=== PATIENT | male | born 1950 | race African-American/Black ===

== ENCOUNTER 2016-06-26 08:42 | Emergency (ER) | payer MEDICARE, MEDICAID ==
[~2016-06-26] VITALS: Ht 170.2 cm; Wt 104.5 kg
[~2016-06-26 08:42] MED LIST: CYCLOBENZAPR10 MG PO; FLEXERIL PO; GOLYTELY4000 ML PO; HYDROCHLOROT12.5 MG PO; HYDROCODONE/ACE1 TAB PO; LIORESAL10 MG/TAB PO; LIPITOR20 M1 PO; LISINOP/HCTZ1 TAB PO; LORTAB 5/3255 MG PO; MELOXICAM7.5 MG PO; NAPROSYN500 MG PO; NITROGLYCER0.4 MG SL; OMEPRAZOLE20 M2 PO; OXYCODONE HCL5 MG PO
[2016-06-26] MEDS ORDERED: AMOXICILLIN500 MG PO (09:17)
[2016-06-26] MEDS ORDERED: LORTAB 10-325 M1 TAB PO (09:17)
[2016-06-26 09:23] VITALS: BP 114/76
[2016-06-30] MEDS ORDERED: HYDROCODONE/ACE1 TAB PO (09:26)
== END 2016-06-26 09:27 | disposition home or self-care (01) ==
LOC: ED 08:42
DX: K08.89 Other specified disorders of teeth and supporting structures (principal); K04.7 Periapical abscess without sinus

== ENCOUNTER 2016-10-07 17:32 | Emergency (ER) | payer MEDICARE, MEDICAID ==
[~2016-10-07] VITALS: Ht 170.2 cm; Wt 105.0 kg
[~2016-10-07 17:32] MED LIST changes: +AMOXICILLIN500 MG PO; +LATANOPROST0.005 % OP; +LORTAB 10-325 M1 TAB PO
[2016-10-07 19:32] LABS: HEMOGLOBIN 13.1 g/dl (14.0-18.0); IMMATURE GRANULOCYTES 0.1 % (0.0-1.0); MEAN CORPUSCULAR HGB 29.6 pG CALC (26.0-32.0); MEAN CORPUSCULAR HGB CONC 33.6 g/L CALC (32.0-36.0); NEUT# 4.14 thou/uL (1.82-7.42); RED BLOOD COUNT 4.43 mill/uL (4.70-6.10); RED CELL DISTRI WIDTH 12.9 % (11.5-15.5)
[2016-10-07 19:47] LABS: ALBUMIN 4.2 g/dL (3.2-5.0); ALKALINE PHOSPHATASE 92 u/l (38-126); ANION GAP 15 (6-22 (CALC)); BILIRUBIN, TOTAL 0.5 mg/dL (0.0-1.4); BUN 18 mg/dL (8-23); BUN/CREATININE RATIO 18 (12-20 (CALC)); CALCIUM 9.3 mg/dL (8.4-10.2); CARBON DIOXIDE 25 mmol/l (22-30); CHLORIDE 106 mmol/l (95-108); GFR > 60 ML/MIN (>=60 (CALC)); GFR FOR AFR.AMER. > 60 ML/MIN (>=60 (CALC)); GLUCOSE 98 mg/dL (82-115); POTASSIUM 4.1 mmol/l (3.5-5.1); SGOT/AST 24 u/l (19-48); SGPT/ALT 34 u/l (11-66); SODIUM 141 mmol/l (137-146); TOTAL PROTEIN 7.5 g/dL (6.3-8.2)
[2016-10-07] MEDS ORDERED: ULTRAM50 M1 PO (19:50)
[2016-10-07 20:25] VITALS: BP 119/63
== END 2016-10-07 20:23 | disposition home or self-care (01) ==
LOC: ED 17:32
PROVIDERS: Emergency Medicine
DX: M54.31 Sciatica, right side (principal); S16.1XXA Strain of muscle, fascia and tendon at neck level, initial encounter; G40.909 Epilepsy, unspecified, not intractable, without status epilepticus; I10 Essential (primary) hypertension; K21.9 Gastro-esophageal reflux disease without esophagitis; G89.29 Other chronic pain; M54.5 Low back pain; X58.XXXA Exposure to other specified factors, initial encounter

== ENCOUNTER 2016-11-26 10:10 | Inpatient (IN) | payer MEDICARE, MEDICAID ==
[~2016-11-26] VITALS: Ht 170.2 cm; Wt 108.0 kg
[~2016-11-26 10:10] MED LIST changes: +ULTRAM50 M1 PO
[2016-11-27] VITALS (8 sets, daily range): BP systolic 90–118; BP diastolic 59–81
[2016-11-27 07:45] LABS: HEMATOCRIT 40.1 % (39.0-50.0); HEMOGLOBIN 13.1 g/dl (14.0-18.0); IMMATURE GRANULOCYTES 0.3 % (0.0-1.0); MEAN CELL VOLUME 88.3 fL CALC (80.0-100.0); MEAN CORPUSCULAR HGB 28.9 pG CALC (26.0-32.0); MEAN CORPUSCULAR HGB CONC 32.7 g/L CALC (32.0-36.0); NEUT# 4.29 thou/uL (1.82-7.42); RED BLOOD COUNT 4.54 mill/uL (4.70-6.10); RED CELL DISTRI WIDTH 12.9 % (11.5-15.5)
[2016-11-27 08:08] LABS: PROTHROMBIN TIME 10.6 SECONDS (9.0-12.5)
[2016-11-28 00:10] VITALS: BP 100/66
[2016-11-28 04:02] VITALS: BP 113/71
[2016-11-28 06:32] LABS: HEMATOCRIT 34.6 % (39.0-50.0); HEMOGLOBIN 11.6 g/dl (14.0-18.0); MEAN CELL VOLUME 87.8 fL CALC (80.0-100.0); MEAN CORPUSCULAR HGB 29.4 pG CALC (26.0-32.0); MEAN CORPUSCULAR HGB CONC 33.5 g/L CALC (32.0-36.0); RED BLOOD COUNT 3.94 mill/uL (4.70-6.10); RED CELL DISTRI WIDTH 13.2 % (11.5-15.5)
[2016-11-28 06:50] LABS: ANION GAP 13 (6-22 (CALC)); BUN 17 mg/dL (8-23); BUN/CREATININE RATIO 22 (12-20 (CALC)); CALCIUM 8.4 mg/dL (8.4-10.2); CARBON DIOXIDE 23 mmol/l (22-30); CHLORIDE 105 mmol/l (95-108); CREATININE 0.7 mg/dL (0.7-1.3); GFR > 60 ML/MIN (>=60 (CALC)); GFR FOR AFR.AMER. > 60 ML/MIN (>=60 (CALC)); GLUCOSE 114 mg/dL (82-115); POTASSIUM 4.2 mmol/l (3.5-5.1); SODIUM 137 mmol/l (137-146)
[2016-11-28 09:03] VITALS: BP 102/68
[2016-11-28] MEDS ORDERED: PERCOCET 10/31 COMBO PO (10:11)
== END 2016-11-28 11:42 | disposition home or self-care (01) | DRG 483 ==
LOC: MS2 11-27 05:58
PROVIDERS: Internal Medicine; ADMIT Orthopaedic Surgery; ATTEND Orthopaedic Surgery
PROC: 0RRJ00Z Replacement of Right Shoulder Joint with Reverse Ball and Socket Synthetic Substitute, Open Approach (ICD-10-PCS; principal; 2016-11-27)
PROC: 0LS30ZZ Reposition Right Upper Arm Tendon, Open Approach (ICD-10-PCS; 2016-11-27)
DX: M75.121 Complete rotator cuff tear or rupture of right shoulder, not specified as traumatic (principal); M19.011 Primary osteoarthritis, right shoulder; S46.211A Strain of muscle, fascia and tendon of other parts of biceps, right arm, initial encounter; K21.9 Gastro-esophageal reflux disease without esophagitis; E78.5 Hyperlipidemia, unspecified; G89.29 Other chronic pain; M54.5 Low back pain; X58.XXXA Exposure to other specified factors, initial encounter
CPT/HCPCS: J1100; J2710

== ENCOUNTER 2017-11-28 09:39 | Emergency (ER) | payer MEDICARE, MEDICAID ==
[~2017-11-28] VITALS: Ht 170.2 cm; Wt 106.2 kg
[~2017-11-28 09:39] MED LIST changes: +AMMONIUM LACTATE12 % EX; +GABAPENTIN400 M2 PO; +KURIC21 EX; +LYRICA75 MG PO; +METFORMIN HCL500 M1 PO; +PERCOCET 10/31 COMBO PO; +PRILOSEC20 MG PO
[2017-11-28] MEDS ORDERED: LORTAB 5/3255 MG PO (11:29)
[2017-11-28] MEDS ORDERED: NAPROSYN500 MG PO (11:34)
[2017-11-28 11:35] VITALS: BP 162/94
== END 2017-11-28 11:46 | disposition home or self-care (01) ==
LOC: ED 09:39
DX: S06.0X0A Concussion without loss of consciousness, initial encounter (principal); S00.83XA Contusion of other part of head, initial encounter; S20.212A Contusion of left front wall of thorax, initial encounter; S50.312A Abrasion of left elbow, initial encounter; E11.9 Type 2 diabetes mellitus without complications; I10 Essential (primary) hypertension; W11.XXXA Fall on and from ladder, initial encounter; Y92.009 Unspecified place in unspecified non-institutional (private) residence as the place of occurrence of the external cause

== ENCOUNTER 2017-12-14 16:36 | Emergency (ER) | payer OTHER, MEDICARE, MEDICAID ==
[~2017-12-14] VITALS: Ht 170.2 cm; Wt 100.0 kg
[2017-12-14] MEDS ORDERED: FLEXERIL PO (18:27)
[2017-12-14] MEDS ORDERED: TORADOL PO (18:27)
[2017-12-14 18:41] VITALS: BP 119/85
== END 2017-12-14 18:53 | disposition home or self-care (01) | DRG 552 ==
LOC: ED 16:36
DX: S16.1XXA Strain of muscle, fascia and tendon at neck level, initial encounter (principal); S29.011A Strain of muscle and tendon of front wall of thorax, initial encounter; E11.9 Type 2 diabetes mellitus without complications; I10 Essential (primary) hypertension; V53.0XXA Driver of pick-up truck or van injured in collision with car, pick-up truck or van in nontraffic accident, initial encounter

== ENCOUNTER 2017-12-25 12:46 | Emergency (ER) | payer OTHER, MEDICARE, MEDICAID ==
[~2017-12-25] VITALS: Ht 170.2 cm; Wt 107.2 kg
[~2017-12-25 12:46] MED LIST changes: +NEURONTIN600 MG PO; +TORADOL PO
[2017-12-25 13:21] LABS: HEMATOCRIT 37.1 % (39.0-50.0); HEMOGLOBIN 12.6 g/dl (14.0-18.0); IMMATURE GRANULOCYTES 0.1 % (0.0-5.0); MEAN CELL VOLUME 87.7 fL CALC (80.0-100.0); MEAN CORPUSCULAR HGB 29.8 pG CALC (26.0-32.0); NEUT# 4.06 thou/uL (1.82-7.42); RED BLOOD COUNT 4.23 mill/uL (4.70-6.10)
[2017-12-25 14:13] LABS: ALBUMIN 3.9 g/dL (3.2-5.0); ALKALINE PHOSPHATASE 106 u/l (38-126); ANION GAP 12 (6-22 (CALC)); BILIRUBIN, TOTAL 0.7 mg/dL (0.0-1.4); BUN 13 mg/dL (8-23); BUN/CREATININE RATIO 18 (12-20 (CALC)); CARBON DIOXIDE 22 mmol/l (22-30); CHLORIDE 108 mmol/l (95-108); CREATININE 0.8 mg/dL (0.7-1.3); GFR > 60 ML/MIN (>=60 (CALC)); GFR FOR AFR.AMER. > 60 ML/MIN (>=60 (CALC)); POTASSIUM 4.6 mmol/l (3.5-5.1); SODIUM 138 mmol/l (137-146); TOTAL PROTEIN 7.5 g/dL (6.3-8.2)
[2017-12-25 14:14] LABS: SGOT/AST 49 u/l (19-48)
[2017-12-25 14:24] LABS: MYOGLOBIN 120 ng/mL (0 - 121)
[2017-12-25] MEDS ORDERED: LORTAB 1010 MG PO (14:34)
[2017-12-25 14:42] VITALS: BP 160/84
== END 2017-12-25 14:54 | disposition home or self-care (01) | DRG 185 ==
LOC: ED 12:46
PROVIDERS: Emergency Medicine
DX: S22.42XA Multiple fractures of ribs, left side, initial encounter for closed fracture (principal); E11.9 Type 2 diabetes mellitus without complications; I10 Essential (primary) hypertension; V89.2XXA Person injured in unspecified motor-vehicle accident, traffic, initial encounter

== ENCOUNTER 2018-01-11 14:28 | Emergency (ER) | payer OTHER, MEDICARE, MEDICAID ==
[~2018-01-11] VITALS: Ht 170.2 cm; Wt 106.7 kg
[~2018-01-11 14:28] MED LIST changes: +LORTAB 1010 MG PO
[2018-01-11] MEDS ORDERED: GABAPENTIN100 MG PO (14:39)
[2018-01-11] MEDS ORDERED: NAPROSYN500 MG PO (16:05)
[2018-01-11 16:25] VITALS: BP 116/74
== END 2018-01-11 16:25 | disposition home or self-care (01) | DRG 93 ==
LOC: ED 14:28
DX: G89.29 Other chronic pain (principal); M54.5 Low back pain; E11.9 Type 2 diabetes mellitus without complications; I10 Essential (primary) hypertension

== ENCOUNTER → 2018-04-05 | Outpatient (REF) | payer MEDICARE, MEDICAID ==
[~2018-04-05] MED LIST changes: +GABAPENTIN100 MG PO; +NEURONTIN800 MG PO; +PERCOCET1 TA4 PO; +TRAZODONE100 MG PO
== END | disposition home or self-care (01) ==
LOC: CT 09:03
DX: R10.2 Pelvic and perineal pain (principal)

== ENCOUNTER 2018-04-11 16:32 | Emergency (ER) | payer MEDICARE, MEDICAID ==
[~2018-04-11] VITALS: Ht 170.2 cm; Wt 104.5 kg
[2018-04-11 19:46] LABS: HEMOGLOBIN 13.7 g/dl (14.0-18.0); IMMATURE GRANULOCYTES 0.3 % (0.0-5.0); MEAN CORPUSCULAR HGB 28.8 pG CALC (26.0-32.0); MEAN CORPUSCULAR HGB CONC 30.5 g/L CALC (32.0-36.0); NEUT# 5.36 thou/uL (1.82-7.42); RED BLOOD COUNT 4.76 mill/uL (4.70-6.10); RED CELL DISTRI WIDTH 13.2 % (11.5-15.5)
[2018-04-11 19:47] LABS: HEMATOCRIT 44.9 % (39.0-50.0); MEAN CELL VOLUME 94.3 fL CALC (80.0-100.0)
[2018-04-11 19:59] LABS: ALBUMIN 4.5 g/dL (3.2-5.0); ALKALINE PHOSPHATASE 108 u/l (38-126); ANION GAP 19 (6-22 (CALC)); BILIRUBIN, TOTAL 0.6 mg/dL (0.0-1.4); BUN 21 mg/dL (8-23); BUN/CREATININE RATIO 26 (12-20 (CALC)); CARBON DIOXIDE 20 mmol/l (22-30); CHLORIDE 104 mmol/l (95-108); CREATININE 0.8 mg/dL (0.7-1.3); GFR > 60 ML/MIN (>=60 (CALC)); GFR FOR AFR.AMER. > 60 ML/MIN (>=60 (CALC)); POTASSIUM 4.7 mmol/l (3.5-5.1); SGOT/AST 36 u/l (19-48); SODIUM 139 mmol/l (137-146); TOTAL PROTEIN 8.4 g/dL (6.3-8.2)
[2018-04-11] MEDS ORDERED: NAPROSYN500 MG PO (21:50)
[2018-04-11] MEDS ORDERED: FLEXERIL PO (21:50)
[2018-04-11 21:51] VITALS: BP 139/65
== END 2018-04-11 22:06 | disposition home or self-care (01) ==
LOC: ED 16:32
PROVIDERS: Emergency Medicine
DX: M54.5 Low back pain (principal); M48.07 Spinal stenosis, lumbosacral region; R53.1 Weakness; Y84.8 Other medical procedures as the cause of abnormal reaction of the patient, or of later complication, without mention of misadventure at the time of the procedure

== ENCOUNTER 2018-08-19 16:21 | Emergency (ER) | payer OTHER, MEDICARE, MEDICAID ==
[~2018-08-19] VITALS: Ht 170.2 cm; Wt 100.0 kg
[2018-08-19 17:33] LABS: ALBUMIN 4.1 g/dL (3.2-5.0); ALKALINE PHOSPHATASE 99 u/l (38-126); BILIRUBIN, TOTAL 0.5 mg/dL (0.0-1.4); BUN 18 mg/dL (8-23); BUN/CREATININE RATIO 20 (12-20 (CALC)); CHLORIDE 108 mmol/l (95-108); CREATININE 0.9 mg/dL (0.7-1.3); GFR > 60 ML/MIN (>=60 (CALC)); GFR FOR AFR.AMER. > 60 ML/MIN (>=60 (CALC)); POTASSIUM 4.3 mmol/l (3.5-5.1); SGOT/AST 30 u/l (19-48); SODIUM 143 mmol/l (137-146); TOTAL PROTEIN 7.3 g/dL (6.3-8.2)
[2018-08-19] MEDS ORDERED: CYMBALTA20 MG PO (17:37)
[2018-08-19 17:38] LABS: ANION GAP 14 (6-22 (CALC)); CARBON DIOXIDE 25 mmol/l (22-30)
[2018-08-19] MEDS ORDERED: XTAMPZA ER9 MG PO (17:38)
[2018-08-19] MEDS ORDERED: NEURONTIN800 MG PO (17:38)
[2018-08-19] MEDS ORDERED: LISINOPRIL10 MG PO (17:39)
[2018-08-19 17:45] LABS: MYOGLOBIN 112 ng/mL (0 - 121)
[2018-08-19 18:53] LABS: HEMATOCRIT 39.6 % (39.0-50.0); HEMOGLOBIN 12.9 g/dl (14.0-18.0); IMMATURE GRANULOCYTES 0.5 % (0.0-5.0); MEAN CORPUSCULAR HGB 29.7 pG CALC (26.0-32.0); MEAN CORPUSCULAR HGB CONC 32.6 g/L CALC (32.0-36.0); NEUT# 8.75 thou/uL (1.82-7.42); RED BLOOD COUNT 4.35 mill/uL (4.70-6.10); RED CELL DISTRI WIDTH 12.9 % (11.5-15.5)
[2018-08-19 19:25] VITALS: BP 133/81
== END 2018-08-19 19:25 | DRG 312 ==
LOC: ED 16:21
PROVIDERS: Emergency Medicine
DX: R55 Syncope and collapse (principal); E11.9 Type 2 diabetes mellitus without complications; I10 Essential (primary) hypertension

== ENCOUNTER 2018-09-27 11:37 | Emergency (ER) | payer MEDICARE, MEDICAID ==
[~2018-09-27] VITALS: Ht 170.2 cm; Wt 102.7 kg
[~2018-09-27 11:37] MED LIST changes: +CYMBALTA20 MG PO; +LISINOPRIL10 MG PO; +XTAMPZA ER9 MG PO
[2018-09-27 12:46] VITALS: BP 140/68
[2018-09-28] MEDS ORDERED: ATORVASTATIN CA40 MG PO (12:29)
[2018-09-28] MEDS ORDERED: LISINOPRIL2.5 MG PO (12:29)
[2018-09-28] MEDS ORDERED: GABAPENTIN800 MG PO (12:30)
[2018-09-28] MEDS ORDERED: DONEPEZIL5 MG PO (12:30)
[2018-09-28] MEDS ORDERED: FAMOTIDINE20 M1 PO (12:31)
[2018-09-28] MEDS ORDERED: LOPRESSOR25 M1 PO (12:32)
[2018-09-28] MEDS ORDERED: OXYCODO-APAP1 TA2 PO (12:32)
[2018-09-28] MEDS ORDERED: LATANOPROST0.005 % OU (12:33)
[2018-09-28] MEDS ORDERED: DULOXETINE HCL20 MG PO (12:33)
[2018-09-28] MEDS ORDERED: TORADOL PO (15:38)
== END 2018-09-27 13:20 | disposition home or self-care (01) ==
LOC: ED 11:37
DX: G89.18 Other acute postprocedural pain (principal); G89.29 Other chronic pain; M54.5 Low back pain; E11.9 Type 2 diabetes mellitus without complications; I10 Essential (primary) hypertension

== ENCOUNTER 2018-09-28 11:42 | Emergency (ER) | payer MEDICARE, MEDICAID ==
[~2018-09-28] VITALS: Ht 170.2 cm; Wt 100.0 kg
[2018-09-28 12:12] LABS: HEMATOCRIT 35.8 % (39.0-50.0); HEMOGLOBIN 11.7 g/dl (14.0-18.0); IMMATURE GRANULOCYTES 0.3 % (0.0-5.0); MEAN CELL VOLUME 87.7 fL CALC (80.0-100.0); MEAN CORPUSCULAR HGB 28.7 pG CALC (26.0-32.0); MEAN CORPUSCULAR HGB CONC 32.7 g/L CALC (32.0-36.0); NEUT# 8.93 thou/uL (1.82-7.42); RED BLOOD COUNT 4.08 mill/uL (4.70-6.10)
[2018-09-28 12:26] LABS: ALBUMIN 4.2 g/dL (3.2-5.0); ALKALINE PHOSPHATASE 97 u/l (38-126); AMYLASE 81 u/l (30-110); ANION GAP 11 (6-22 (CALC)); BILIRUBIN, TOTAL 0.5 mg/dL (0.0-1.4); BUN 18 mg/dL (8-23); BUN/CREATININE RATIO 27 (12-20 (CALC)); CARBON DIOXIDE 26 mmol/l (22-30); CHLORIDE 111 mmol/l (95-108); CREATININE 0.7 mg/dL (0.7-1.3); GFR > 60 ML/MIN (>=60 (CALC)); GFR FOR AFR.AMER. > 60 ML/MIN (>=60 (CALC)); LIPASE 10 u/l (23-300); POTASSIUM 3.8 mmol/l (3.5-5.1); SGOT/AST 34 u/l (19-48); SODIUM 144 mmol/l (137-146); TOTAL PROTEIN 7.8 g/dL (6.3-8.2)
[2018-09-28 12:28] LABS: ACT PARTIAL THROMBO TIME 25.4 SECONDS (20.0-32.5); D-DIMER 2.66 mg/L (0.19-0.60); PROTHROMBIN TIME 10.5 SECONDS (9.0-12.5)
[2018-09-28] MEDS ORDERED: ATORVASTATIN CA40 MG PO (12:29)
[2018-09-28] MEDS ORDERED: LISINOPRIL2.5 MG PO (12:29)
[2018-09-28] MEDS ORDERED: GABAPENTIN800 MG PO (12:30)
[2018-09-28] MEDS ORDERED: DONEPEZIL5 MG PO (12:30)
[2018-09-28] MEDS ORDERED: FAMOTIDINE20 M1 PO (12:31)
[2018-09-28] MEDS ORDERED: LOPRESSOR25 M1 PO (12:32)
[2018-09-28] MEDS ORDERED: OXYCODO-APAP1 TA2 PO (12:32)
[2018-09-28] MEDS ORDERED: LATANOPROST0.005 % OU (12:33)
[2018-09-28] MEDS ORDERED: DULOXETINE HCL20 MG PO (12:33)
[2018-09-28 12:38] LABS: MYOGLOBIN 129 ng/mL (0 - 121)
[2018-09-28] MEDS ORDERED: TORADOL PO (15:38)
[2018-09-28 15:50] VITALS: BP 188/78
== END 2018-09-28 15:50 | disposition home or self-care (01) ==
LOC: ED 11:42
PROVIDERS: Family Medicine
DX: R07.89 Other chest pain (principal); I10 Essential (primary) hypertension; E11.9 Type 2 diabetes mellitus without complications
CPT/HCPCS: Q9967

== ENCOUNTER 2019-04-12 | Emergency (ER) | payer MEDICARE, MEDICAID ==
[~2019-04-12] MED LIST changes: +ATORVASTATIN CA40 MG PO; +DONEPEZIL5 MG PO; +DULOXETINE HCL20 MG PO; +FAMOTIDINE20 M1 PO; +GABAPENTIN800 MG PO; +LATANOPROST0.005 % OU; +LISINOPRIL2.5 MG PO; +LOPRESSOR25 M1 PO
[2019-04-12] MEDS ORDERED: (None)3.5 GM OS ×2 (20:00→20:11)
[2019-04-12] MEDS ORDERED: GENTAMICIN SULF5 ML OS ×2 (20:00→20:11)
[2019-04-12] MEDS ORDERED: METFORMIN500 M2 PO (20:16)
[2019-04-12] MEDS ORDERED: DULOXETINE HCL60 MG PO (20:17)
[2019-04-12] MEDS ORDERED: XTAMPZA ER9 MG PO (20:20)
[2019-04-12] MEDS ORDERED: OXYCODO-APAP1 TA2 PO (20:20)
== END 2019-04-12 20:10 | disposition home or self-care (01) ==
DX: H10.9 Unspecified conjunctivitis (principal); S05.02XA Injury of conjunctiva and corneal abrasion without foreign body, left eye, initial encounter; E11.9 Type 2 diabetes mellitus without complications; I10 Essential (primary) hypertension; X58.XXXA Exposure to other specified factors, initial encounter; Z79.84 Long term (current) use of oral hypoglycemic drugs

== ENCOUNTER 2020-02-13 16:52 | Emergency (ER) | payer MEDICARE, MEDICAID ==
[~2020-02-13] VITALS: Ht 170.2 cm; Wt 104.5 kg
[~2020-02-13 16:52] MED LIST changes: +(None)3.5 GM OS; +DULOXETINE HCL60 MG PO; +GENTAMICIN SULF5 ML OS; +METFORMIN500 M2 PO; +OXYCODO-APAP1 TA2 PO
[2020-02-13] MEDS ORDERED: CYCLOBENZAPRINE10 MG PO (19:06)
[2020-02-13] MEDS ORDERED: ULTRAM50 M1 PO (19:06)
[2020-02-13 19:09] VITALS: BP 114/76
== END 2020-02-13 19:32 | disposition home or self-care (01) ==
LOC: ED 16:52
DX: M79.89 Other specified soft tissue disorders (principal); M54.5 Low back pain; M79.604 Pain in right leg; G89.29 Other chronic pain; E11.9 Type 2 diabetes mellitus without complications; I10 Essential (primary) hypertension; W19.XXXA Unspecified fall, initial encounter; Z79.84 Long term (current) use of oral hypoglycemic drugs

== ENCOUNTER 2020-10-08 11:53 | Emergency (ER) | payer OTHER, MEDICARE ==
[~2020-10-08] VITALS: Ht 170.2 cm; Wt 90.0 kg
[~2020-10-08 11:53] MED LIST changes: +CYCLOBENZAPRINE10 MG PO
[2020-10-08 14:31] VITALS: BP 108/75
== END 2020-10-08 14:31 | disposition home or self-care (01) | DRG 552 ==
LOC: ED 11:53
DX: M54.5 Low back pain (principal); E11.9 Type 2 diabetes mellitus without complications; I10 Essential (primary) hypertension; G89.29 Other chronic pain; V49.40XA Driver injured in collision with unspecified motor vehicles in traffic accident, initial encounter

== ENCOUNTER 2021-02-06 19:09 | Emergency (ER) | payer OTHER, MEDICARE, MEDICAID ==
[~2021-02-06] VITALS: Ht 170.2 cm; Wt 104.0 kg
[2021-02-06 20:22] LABS: HEMATOCRIT 37.9 % (39.0-50.0); IMMATURE GRANULOCYTES 0.1 % (0.0-5.0); MEAN CELL VOLUME 88.1 fL CALC (80.0-100.0); MEAN CORPUSCULAR HGB 27.9 pG CALC (26.0-32.0); MEAN CORPUSCULAR HGB CONC 31.7 g/dL CAL (32.0-36.0); NEUT# 3.9 thou/uL (1.82-7.42); RED BLOOD COUNT 4.3 mill/uL (4.70-6.10); RED CELL DISTRI WIDTH 14.1 % (11.5-15.5)
[2021-02-06 20:26] LABS: ALBUMIN 4.1 g/dL (3.2-5.0); ALKALINE PHOSPHATASE 125 u/l (38-126); ANION GAP 11 (6-22 (CALC)); BILIRUBIN, TOTAL 0.4 mg/dL (0.0-1.4); BUN 14 mg/dL (8-23); BUN/CREATININE RATIO 19 (12-20 (CALC)); CARBON DIOXIDE 25 mmol/l (22-30); CHLORIDE 109 mmol/l (95-108); CREATININE 0.8 mg/dL (0.7-1.3); GFR > 60 ML/MIN (>=60 (CALC)); GFR FOR AFR.AMER. > 60 ML/MIN (>=60 (CALC)); POTASSIUM 3.9 mmol/l (3.5-5.1); SGOT/AST 34 u/l (19-48); SODIUM 141 mmol/l (137-146); TOTAL PROTEIN 8.1 g/dL (6.3-8.2)
[2021-02-06] MEDS ORDERED: PERCOCET1 TA4 PO (20:50)
[2021-02-06] MEDS ORDERED: XTAMPZA ER9 MG PO (20:51)
[2021-02-06] MEDS ORDERED: LATANOPROST0.005 % OU (20:52)
[2021-02-06] MEDS ORDERED: GABAPENTIN800 MG PO (20:52)
[2021-02-06] MEDS ORDERED: LISINOPRIL2.5 MG PO (20:54)
[2021-02-06] MEDS ORDERED: METFORMIN HCL500 M1 PO (20:55)
[2021-02-06] MEDS ORDERED: CYCLOBENZAPRINE10 MG PO (20:56)
[2021-02-06] MEDS ORDERED: LIPITOR40 M1 PO (20:57)
[2021-02-07 00:02] VITALS: BP 125/76
== END 2021-02-07 00:03 | disposition home or self-care (01) | DRG 552 ==
LOC: ED 19:09
PROVIDERS: Family Medicine
DX: S16.1XXA Strain of muscle, fascia and tendon at neck level, initial encounter (principal); S39.012A Strain of muscle, fascia and tendon of lower back, initial encounter; S80.01XA Contusion of right knee, initial encounter; S30.0XXA Contusion of lower back and pelvis, initial encounter; E11.9 Type 2 diabetes mellitus without complications; I10 Essential (primary) hypertension; V53.5XXA Driver of pick-up truck or van injured in collision with car, pick-up truck or van in traffic accident, initial encounter; Z79.84 Long term (current) use of oral hypoglycemic drugs

== ENCOUNTER 2021-03-07 14:33 | Emergency (ER) | payer MEDICARE, MEDICAID ==
[~2021-03-07] VITALS: Ht 170.2 cm; Wt 106.5 kg
[~2021-03-07 14:33] MED LIST changes: +LIPITOR40 M1 PO
[2021-03-07 17:21] VITALS: BP 127/75
== END 2021-03-07 17:21 | disposition home or self-care (01) ==
LOC: ED 14:33
DX: S00.03XA Contusion of scalp, initial encounter (principal); S30.0XXA Contusion of lower back and pelvis, initial encounter; S70.02XA Contusion of left hip, initial encounter; S80.02XA Contusion of left knee, initial encounter; S20.212A Contusion of left front wall of thorax, initial encounter; W01.0XXA Fall on same level from slipping, tripping and stumbling without subsequent striking against object, initial encounter; Y93.01 Activity, walking, marching and hiking; Y92.481 Parking lot as the place of occurrence of the external cause; S39.012A Strain of muscle, fascia and tendon of lower back, initial encounter; S16.1XXA Strain of muscle, fascia and tendon at neck level, initial encounter

== ENCOUNTER 2021-09-27 10:26 | Observation (INO) | payer MEDICARE, MEDICAID ==
[2021-09-27] VITALS (13 sets, daily range): BP systolic 89–164; BP diastolic 53–87
[~2021-09-27] VITALS: Ht 170.2 cm; Wt 114.2 kg
[2021-09-27 11:22] LABS: HEMATOCRIT 36.2 % (39.0-50.0); HEMOGLOBIN 11.4 g/dl (14.0-18.0); IMMATURE GRANULOCYTES 0.1 % (0.0-5.0); MEAN CELL VOLUME 89.8 fL CALC (80.0-100.0); MEAN CORPUSCULAR HGB 28.3 pG CALC (26.0-32.0); MEAN CORPUSCULAR HGB CONC 31.5 g/dL CAL (32.0-36.0); NEUT# 4.11 thou/uL (1.82-7.42); RED BLOOD COUNT 4.03 mill/uL (4.70-6.10); RED CELL DISTRI WIDTH 12.9 % (11.5-15.5)
[2021-09-27 11:26] LABS: ALKALINE PHOSPHATASE 105 u/l (38-126); ANION GAP 13 (6-22 (CALC)); BILIRUBIN, TOTAL 0.4 mg/dL (0.0-1.4); BUN 11 mg/dL (8-23); BUN/CREATININE RATIO 17 (12-20 (CALC)); CARBON DIOXIDE 24 mmol/l (22-30); CHLORIDE 108 mmol/l (95-108); CREATININE 0.7 mg/dL (0.7-1.3); GFR FOR AFR.AMER. > 60 ML/MIN (>=60 (CALC)); GFR OTHER RACES > 60 ML/MIN (>=60 (CALC)); POTASSIUM 3.8 mmol/l (3.5-5.1); SGOT/AST 28 u/l (19-48); SODIUM 141 mmol/l (137-146); TOTAL PROTEIN 7.9 g/dL (6.3-8.2)
[2021-09-27] MEDS ORDERED: PERCOCET 10/31 COMBO PO (13:36)
[2021-09-27] MEDS ORDERED: XTAMPZA ER9 MG PO (13:36)
[2021-09-27] MEDS ORDERED: LIPITOR40 M1 PO (13:37)
[2021-09-27] MEDS ORDERED: ZESTRIL5 M1 PO (13:38)
[2021-09-27] MEDS ORDERED: METFORMIN HCL500 M1 PO (13:38)
[2021-09-27] MEDS ORDERED: XALATAN0.005 % OU (13:39)
[2021-09-27] MEDS ORDERED: GABAPENTIN100 MG PO (13:41)
[2021-09-28 04:04] VITALS: BP 132/63
[2021-09-28 06:04] LABS: CHOLESTEROL HDL RATIO 2.7 (<4.4 (CALC)); MAGNESIUM 2.2 mg/dL (1.6-2.3)
[2021-09-28 06:38] VITALS: BP 152/82
[2021-09-28 09:32] VITALS: BP 149/74
[2021-09-28 10:21] VITALS: BP 144/79
== END 2021-09-28 12:36 | disposition home or self-care (01) ==
LOC: ED 10:26 → ED-I 11:40 → ED 12:03 → MS2 12:04
PROVIDERS: Family Medicine; ADMIT Internal Medicine; ATTEND Internal Medicine
DX: R07.9 Chest pain, unspecified (principal); I10 Essential (primary) hypertension; E11.9 Type 2 diabetes mellitus without complications; I25.10 Atherosclerotic heart disease of native coronary artery without angina pectoris; E78.5 Hyperlipidemia, unspecified; K21.9 Gastro-esophageal reflux disease without esophagitis; E66.9 Obesity, unspecified; Z95.1 Presence of aortocoronary bypass graft; Z79.84 Long term (current) use of oral hypoglycemic drugs; Z20.822 Contact with and (suspected) exposure to COVID-19
CPT/HCPCS: J1650

== ENCOUNTER 2021-12-09 12:25 | Emergency (ER) | payer MEDICARE, MEDICAID ==
[~2021-12-09 12:25] MED LIST changes: +XALATAN0.005 % OU; +ZESTRIL5 M1 PO
== END 2021-12-09 13:48 | disposition left against medical advice (07) ==
LOC: ED 12:25 → LWOBS 13:07
DX: Z53.21 Procedure and treatment not carried out due to patient leaving prior to being seen by health care provider (principal)

== ENCOUNTER 2022-02-11 17:50 | Emergency (ER) | payer OTHER, MEDICARE, MEDICAID ==
[~2022-02-11] VITALS: Ht 170.2 cm; Wt 154.0 kg
[2022-02-11] VITALS (8 sets, daily range): BP systolic 163–184; BP diastolic 90–109
[2022-02-11 18:22] LABS: BASO% 0.3 % (0-3); EOS% 1.3 % (0-8); HEMOGLOBIN 11.7 g/dl (14.0-18.0); LYMPH% 37.2 % (15-41); MEAN CELL VOLUME 88.9 fL CALC (80.0-100.0); MEAN CORPUSCULAR HGB 28.9 pG CALC (26.0-32.0); MEAN CORPUSCULAR HGB CONC 32.5 g/dL CAL (32.0-36.0); MONO% 8.2 % (2-13); NEUT# 4.14 thou/uL (1.82-7.42); RED BLOOD COUNT 4.05 mill/uL (4.70-6.10)
[2022-02-11 18:33] LABS: ALBUMIN 4.3 g/dL (3.2-5.0); ALKALINE PHOSPHATASE 104 u/l (38-126); ANION GAP 10 (6-22 (CALC)); BUN 13 mg/dL (8-23); BUN/CREATININE RATIO 17 (12-20 (CALC)); CARBON DIOXIDE 27 mmol/l (22-30); CHLORIDE 108 mmol/l (95-108); CREATININE 0.8 mg/dL (0.7-1.3); GFR FOR AFR.AMER. > 60 ML/MIN (>=60 (CALC)); GFR OTHER RACES > 60 ML/MIN (>=60 (CALC)); LIPASE 11 u/l (23-300); POTASSIUM 3.9 mmol/l (3.5-5.1); SGOT/AST 31 u/l (19-48); SODIUM 140 mmol/l (137-146); TOTAL PROTEIN 7.9 g/dL (6.3-8.2)
[2022-02-11 18:34] LABS: BILIRUBIN, TOTAL 0.2 mg/dL (0.0-1.4)
[2022-02-11] MEDS ORDERED: NAPROXEN500 MG PO (21:41)
== END 2022-02-11 22:01 | disposition home or self-care (01) | DRG 313 ==
LOC: ED 17:50
PROVIDERS: Family Medicine
DX: R07.89 Other chest pain (principal); M54.6 Pain in thoracic spine; V43.52XA Car driver injured in collision with other type car in traffic accident, initial encounter

== ENCOUNTER 2022-04-25 15:09 | Inpatient (IN) | payer MEDICARE, MEDICAID ==
[2022-04-25] VITALS (71 sets, daily range): BP systolic 66–174; BP diastolic 37–116
[~2022-04-25] VITALS: Ht 170.2 cm; Wt 100.0 kg
[~2022-04-25 15:09] MED LIST changes: +NAPROXEN500 MG PO
[2022-04-25 15:49] LABS: BASO% 0.2 % (0-3); EOS% 0.1 % (0-8); HEMOGLOBIN 11.6 g/dl (14.0-18.0); IMMATURE GRANULOCYTES 0.3 % (0.0-5.0); LYMPH% 27.5 % (15-41); MEAN CELL VOLUME 90.9 fL CALC (80.0-100.0); MEAN CORPUSCULAR HGB 27.8 pG CALC (26.0-32.0); MEAN CORPUSCULAR HGB CONC 30.5 g/dL CAL (32.0-36.0); MONO% 6.5 % (2-13); NEUT# 8.54 thou/uL (1.82-7.42); NEUT% 65.4 % (42-76); RED BLOOD COUNT 4.18 mill/uL (4.70-6.10); RED CELL DISTRI WIDTH 12.8 % (11.5-15.5)
[2022-04-25 15:59] LABS: ALBUMIN 4.3 g/dL (3.2-5.0); POTASSIUM 3.6 mmol/l (3.5-5.1); TOTAL PROTEIN 8.4 g/dL (6.3-8.2)
[2022-04-25 16:02] LABS: BILIRUBIN, TOTAL 0.5 mg/dL (0.2-1.3); CREATININE 1.9 mg/dL (0.7-1.3)
[2022-04-26] VITALS (10 sets, daily range): BP systolic 98–174; BP diastolic 58–99
[2022-04-26 05:27] LABS: BASO% 0.2 % (0-3); EOS% 0.7 % (0-8); HEMATOCRIT 37.6 % (39.0-50.0); HEMOGLOBIN 11.7 g/dl (14.0-18.0); IMMATURE GRANULOCYTES 0.2 % (0.0-5.0); MEAN CELL VOLUME 89.7 fL CALC (80.0-100.0); MEAN CORPUSCULAR HGB 27.9 pG CALC (26.0-32.0); MEAN CORPUSCULAR HGB CONC 31.1 g/dL CAL (32.0-36.0); NEUT# 7.67 thou/uL (1.82-7.42); NEUT% 67.9 % (42-76); RED BLOOD COUNT 4.19 mill/uL (4.70-6.10)
[2022-04-26 05:45] LABS: ALBUMIN 4.1 g/dL (3.2-5.0); ALKALINE PHOSPHATASE 105 u/l (38-126); ANION GAP 15 (6-22 (CALC)); BILIRUBIN, TOTAL 0.7 mg/dL (0.2-1.3); BUN 23 mg/dL (8-23); CHLORIDE 106 mmol/l (95-108); POTASSIUM 4.1 mmol/l (3.5-5.1); SGOT/AST 25 u/l (19-48); SODIUM 140 mmol/l (137-146); TOTAL PROTEIN 7.6 g/dL (6.3-8.2)
[2022-04-26 06:03] LABS: BUN/CREATININE RATIO 26 (12-20 (CALC)); CARBON DIOXIDE 23 mmol/l (22-30); CREATININE 0.9 mg/dL (0.7-1.3); GFR FOR AFR.AMER. > 60 ML/MIN (>=60 (CALC)); GFR OTHER RACES > 60 ML/MIN (>=60 (CALC))
[2022-04-27 03:18] VITALS: BP 134/76
[2022-04-27 06:12] VITALS: BP 153/95
[2022-04-27 10:25] VITALS: BP 167/96
[2022-04-27 10:37] LABS: BASO% 0.1 % (0-3); EOS% 2.7 % (0-8); HEMATOCRIT 37.9 % (39.0-50.0); HEMOGLOBIN 11.7 g/dl (14.0-18.0); IMMATURE GRANULOCYTES 0.1 % (0.0-5.0); MEAN CELL VOLUME 91.1 fL CALC (80.0-100.0); MEAN CORPUSCULAR HGB 28.1 pG CALC (26.0-32.0); MEAN CORPUSCULAR HGB CONC 30.9 g/dL CAL (32.0-36.0); NEUT# 7.08 thou/uL (1.82-7.42); NEUT% 68.1 % (42-76); RED BLOOD COUNT 4.16 mill/uL (4.70-6.10); RED CELL DISTRI WIDTH 12.9 % (11.5-15.5)
[2022-04-27 10:49] LABS: ALBUMIN 3.8 g/dL (3.2-5.0); ALKALINE PHOSPHATASE 101 u/l (38-126); ANION GAP 12 (6-22 (CALC)); BILIRUBIN, TOTAL 0.5 mg/dL (0.2-1.3); BUN 12 mg/dL (8-23); BUN/CREATININE RATIO 16 (12-20 (CALC)); CARBON DIOXIDE 23 mmol/l (22-30); CHLORIDE 110 mmol/l (95-108); CREATININE 0.8 mg/dL (0.7-1.3); GFR FOR AFR.AMER. > 60 ML/MIN (>=60 (CALC)); GFR OTHER RACES > 60 ML/MIN (>=60 (CALC)); SGOT/AST 27 u/l (19-48); SODIUM 140 mmol/l (137-146); TOTAL PROTEIN 7.5 g/dL (6.3-8.2)
[2022-04-27 14:26] VITALS: BP 139/83
[2022-04-27 15:37] LABS: URINE BILIRUBIN - DIPSTICK NEGATIVE (NEGATIVE); URINE BLOOD DIPSTICK NEGATIVE (NEGATIVE); URINE COLOR YELLOW; URINE GLUCOSE - DIPSTICK NEGATIVE (NEGATIVE); URINE KETONE NEGATIVE (NEGATIVE); URINE LEUK ESTERASE TRACE (NEGATIVE); URINE PH 6.5 (4.5-8.0); URINE PROTEIN - DIPSTICK NEGATIVE (NEG-TRACE)
[2022-04-27 15:38] LABS: URINE NITRITE - DIPSTICK NEGATIVE (Negative)
[2022-04-27 17:45] VITALS: BP 153/88
[2022-04-27 23:14] VITALS: BP 131/86
[2022-04-28 03:10] VITALS: BP 123/59
[2022-04-28 05:36] LABS: BASO% 0.3 % (0-3); HEMATOCRIT 33.2 % (39.0-50.0); HEMOGLOBIN 10.3 g/dl (14.0-18.0); IMMATURE GRANULOCYTES 0.1 % (0.0-5.0); LYMPH% 26.7 % (15-41); MEAN CELL VOLUME 89.2 fL CALC (80.0-100.0); MEAN CORPUSCULAR HGB 27.7 pG CALC (26.0-32.0); MONO% 10.5 % (2-13); NEUT# 5.31 thou/uL (1.82-7.42); NEUT% 59.4 % (42-76); RED BLOOD COUNT 3.72 mill/uL (4.70-6.10)
[2022-04-28 05:41] VITALS: BP 159/93
[2022-04-28 05:54] LABS: ALBUMIN 3.4 g/dL (3.2-5.0); ALKALINE PHOSPHATASE 87 u/l (38-126); ANION GAP 11 (6-22 (CALC)); BILIRUBIN, TOTAL 0.3 mg/dL (0.2-1.3); BUN 14 mg/dL (8-23); BUN/CREATININE RATIO 17 (12-20 (CALC)); CARBON DIOXIDE 27 mmol/l (22-30); CHLORIDE 106 mmol/l (95-108); CREATININE 0.8 mg/dL (0.7-1.3); GFR FOR AFR.AMER. > 60 ML/MIN (>=60 (CALC)); GFR OTHER RACES > 60 ML/MIN (>=60 (CALC)); POTASSIUM 3.6 mmol/l (3.5-5.1); SGOT/AST 33 u/l (19-48); SODIUM 140 mmol/l (137-146); TOTAL PROTEIN 6.7 g/dL (6.3-8.2)
[2022-04-28 09:36] VITALS: BP 154/68
[2022-04-28 09:47] VITALS: BP 159/93
[2022-04-28] MEDS ORDERED: CEFDINIR300 MG PO (11:22)
== END 2022-04-28 12:58 | disposition home or self-care (01) | DRG 923 ==
LOC: ED 15:09 → ED-I 18:43 → ED 19:16 → MS2 19:17
PROVIDERS: Family Medicine; Nurse Practitioner Family; ADMIT Internal Medicine; ATTEND Internal Medicine
DX: T67.01XA Heatstroke and sunstroke, initial encounter (principal); N17.9 Acute kidney failure, unspecified; E87.21 Acute metabolic acidosis; E86.9 Volume depletion, unspecified; E86.0 Dehydration; I95.9 Hypotension, unspecified; M54.6 Pain in thoracic spine; R07.9 Chest pain, unspecified; I10 Essential (primary) hypertension; E11.9 Type 2 diabetes mellitus without complications; I25.10 Atherosclerotic heart disease of native coronary artery without angina pectoris; E78.5 Hyperlipidemia, unspecified; K21.9 Gastro-esophageal reflux disease without esophagitis; Z79.84 Long term (current) use of oral hypoglycemic drugs; Z95.1 Presence of aortocoronary bypass graft; X30.XXXA Exposure to excessive natural heat, initial encounter; Y92.89 Other specified places as the place of occurrence of the external cause

== ENCOUNTER 2022-06-19 05:08 | Emergency (ER) | payer MEDICARE, MEDICAID ==
[~2022-06-19] VITALS: Ht 170.2 cm; Wt 250.0 kg
[~2022-06-19 05:08] MED LIST changes: +CEFDINIR300 MG PO
[2022-06-19 05:23] VITALS: BP 143/87
[2022-06-19 05:30] VITALS: BP 133/84
[2022-06-19 05:46] VITALS: BP 129/74
[2022-06-19 06:08] VITALS: BP 129/74
== END 2022-06-19 06:12 | disposition home or self-care (01) ==
LOC: ED 05:08
PROC: 0HQGXZZ Repair Left Hand Skin, External Approach (ICD-10-PCS; principal; 2022-06-19)
DX: S61.412A Laceration without foreign body of left hand, initial encounter (principal); I10 Essential (primary) hypertension; E11.9 Type 2 diabetes mellitus without complications; W26.0XXA Contact with knife, initial encounter; Y93.G1 Activity, food preparation and clean up; Y92.000 Kitchen of unspecified non-institutional (private) residence as the place of occurrence of the external cause; Z79.84 Long term (current) use of oral hypoglycemic drugs

== ENCOUNTER 2022-07-17 11:28 | Emergency (ER) | payer MEDICARE, MEDICAID ==
[~2022-07-17] VITALS: Ht 170.2 cm; Wt 115.6 kg
[2022-07-17 11:56] VITALS: BP 141/85
[2022-07-17 12:01] VITALS: BP 100/57
[2022-07-17 12:15] VITALS: BP 93/63
[2022-07-17 12:30] VITALS: BP 106/57
[2022-07-17] MEDS ORDERED: MAXITROL 0.1 %1 SUS OS (12:35)
[2022-07-17 12:45] VITALS: BP 122/85
[2022-07-17 12:51] VITALS: BP 122/85
== END 2022-07-17 12:56 | disposition home or self-care (01) ==
LOC: ED 11:28
DX: S05.02XA Injury of conjunctiva and corneal abrasion without foreign body, left eye, initial encounter (principal); I10 Essential (primary) hypertension; E11.9 Type 2 diabetes mellitus without complications; X58.XXXA Exposure to other specified factors, initial encounter; Z79.84 Long term (current) use of oral hypoglycemic drugs

== ENCOUNTER 2022-08-01 12:14 | Inpatient (IN) | payer MEDICARE, MEDICAID ==
[~2022-08-01] VITALS: Ht 170.2 cm; Wt 111.0 kg
[2022-08-01] VITALS (17 sets, daily range): BP systolic 73–203; BP diastolic 30–167
[~2022-08-01 12:14] MED LIST changes: +MAXITROL 0.1 %1 SUS OS
[2022-08-01 12:56] LABS: BASO% 0.1 % (0-3); HEMATOCRIT 36.2 % (39.0-50.0); IMMATURE GRANULOCYTES 0.2 % (0.0-5.0); LYMPH% 18.5 % (15-41); MEAN CELL VOLUME 91.2 fL CALC (80.0-100.0); MEAN CORPUSCULAR HGB 27.7 pG CALC (26.0-32.0); MEAN CORPUSCULAR HGB CONC 30.4 g/dL CAL (32.0-36.0); NEUT# 9.01 thou/uL (1.82-7.42); NEUT% 74.2 % (42-76); RED BLOOD COUNT 3.97 mill/uL (4.70-6.10); RED CELL DISTRI WIDTH 13.3 % (11.5-15.5)
[2022-08-01 13:08] LABS: ALBUMIN 4.3 g/dL (3.2-5.0); ALKALINE PHOSPHATASE 113 u/l (38-126); BUN 28 mg/dL (8-23); BUN/CREATININE RATIO 15 (12-20 (CALC)); CHLORIDE 105 mmol/l (95-108); CREATININE 1.8 mg/dL (0.7-1.3); GFR FOR AFR.AMER. 45 ML/MIN (>=60 (CALC)); GFR OTHER RACES 37 ML/MIN (>=60 (CALC)); POTASSIUM 3.9 mmol/l (3.5-5.1); SGOT/AST 45 u/l (19-48); SODIUM 137 mmol/l (137-146); TOTAL PROTEIN 7.8 g/dL (6.3-8.2)
[2022-08-01 13:12] LABS: ANION GAP 16 (6-22 (CALC)); BILIRUBIN, TOTAL 0.5 mg/dL (0.2-1.3); CARBON DIOXIDE 20 mmol/l (22-30)
[2022-08-01 16:25] LABS: URINE BILIRUBIN - DIPSTICK NEGATIVE (NEGATIVE); URINE BLOOD DIPSTICK NEGATIVE (NEGATIVE); URINE COLOR YELLOW; URINE GLUCOSE - DIPSTICK NEGATIVE (NEGATIVE); URINE KETONE NEGATIVE (NEGATIVE); URINE LEUK ESTERASE NEGATIVE (NEGATIVE); URINE PH 5.5 (4.5-8.0); URINE PROTEIN - DIPSTICK NEGATIVE (NEG-TRACE); URINE SPECIFIC GRAVITY 1.015; URINE UROBILINOGEN - DIPSTICK 0.2 E.U./dL (0.2)
[2022-08-01 16:27] LABS: URINE NITRITE - DIPSTICK NEGATIVE (Negative)
[2022-08-01] MEDS ORDERED: PERCOCET 10/31 COMBO PO (23:41)
[2022-08-02] VITALS (32 sets, daily range): BP systolic 85–133; BP diastolic 45–81
[2022-08-02 05:44] LABS: HEMOGLOBIN 10.4 g/dl (14.0-18.0); MEAN CELL VOLUME 90.4 fL CALC (80.0-100.0); MEAN CORPUSCULAR HGB 28.5 pG CALC (26.0-32.0); MEAN CORPUSCULAR HGB CONC 31.5 g/dL CAL (32.0-36.0); RED BLOOD COUNT 3.65 mill/uL (4.70-6.10); RED CELL DISTRI WIDTH 13.4 % (11.5-15.5)
[2022-08-02 05:56] LABS: ALBUMIN 3.7 g/dL (3.2-5.0); ALKALINE PHOSPHATASE 99 u/l (38-126); ANION GAP 14 (6-22 (CALC)); BILIRUBIN, TOTAL 0.6 mg/dL (0.2-1.3); BUN 22 mg/dL (8-23); BUN/CREATININE RATIO 25 (12-20 (CALC)); CARBON DIOXIDE 23 mmol/l (22-30); CHLORIDE 107 mmol/l (95-108); CREATININE 0.9 mg/dL (0.7-1.3); GFR FOR AFR.AMER. > 60 ML/MIN (>=60 (CALC)); GFR OTHER RACES > 60 ML/MIN (>=60 (CALC)); MAGNESIUM 2.2 mg/dL (1.6-2.3); POTASSIUM 4.1 mmol/l (3.5-5.1); SGOT/AST 30 u/l (19-48); SODIUM 139 mmol/l (137-146); TOTAL PROTEIN 6.9 g/dL (6.3-8.2)
== END 2022-08-02 18:05 | disposition home or self-care (01) | DRG 315 ==
LOC: ED 12:14 → ICU 16:43
PROVIDERS: Family Medicine; ADMIT Internal Medicine; ATTEND Internal Medicine
PROC: 05HM33Z Insertion of Infusion Device into Right Internal Jugular Vein, Percutaneous Approach (ICD-10-PCS; principal; 2022-08-01)
PROC: 3E043XZ Introduction of Vasopressor into Central Vein, Percutaneous Approach (ICD-10-PCS; 2022-08-01)
DX: I95.9 Hypotension, unspecified (principal); N17.9 Acute kidney failure, unspecified; E86.0 Dehydration; I10 Essential (primary) hypertension; E11.40 Type 2 diabetes mellitus with diabetic neuropathy, unspecified; E78.5 Hyperlipidemia, unspecified; E66.9 Obesity, unspecified; G89.29 Other chronic pain; Z79.891 Long term (current) use of opiate analgesic; Z79.84 Long term (current) use of oral hypoglycemic drugs; Z20.822 Contact with and (suspected) exposure to COVID-19
CPT/HCPCS: J1650

== ENCOUNTER 2023-11-21 13:42 | Emergency (ER) | payer MEDICARE, MEDICAID ==
[~2023-11-21] VITALS: Ht 170.2 cm; Wt 117.7 kg
[2023-11-21] VITALS (9 sets, daily range): BP systolic 103–132; BP diastolic 72–89
[2023-11-21 14:42] LABS: BASO% 0.3 % (0-3); EOS% 1.7 % (0-8); HEMATOCRIT 39.5 % (39.0-50.0); HEMOGLOBIN 12.8 g/dl (14.0-18.0); IMMATURE GRANULOCYTES 0.1 % (0.0-5.0); LYMPH% 26.8 % (15-41); MEAN CELL VOLUME 88.6 fL CALC (80.0-100.0); MEAN CORPUSCULAR HGB 28.7 pG CALC (26.0-32.0); MEAN CORPUSCULAR HGB CONC 32.4 g/dL CAL (32.0-36.0); MONO% 8.3 % (2-13); NEUT# 5.38 thou/uL (1.82-7.42); NEUT% 62.8 % (42-76); RED BLOOD COUNT 4.46 mill/uL (4.70-6.10); RED CELL DISTRI WIDTH 12.8 % (11.5-15.5)
[2023-11-21 14:48] LABS: ALBUMIN 4.3 g/dL (3.2-5.0); BILIRUBIN, TOTAL 0.6 mg/dL (0.2-1.3); POTASSIUM 3.7 mmol/l (3.5-5.1)
[2023-11-21] MEDS ORDERED: IBUPROFEN600 MG PO (16:53)
[2023-11-21 17:11] LABS: URINE BILIRUBIN - DIPSTICK Negative (NEGATIVE); URINE BLOOD DIPSTICK Negative (NEGATIVE); URINE COLOR Yellow; URINE GLUCOSE - DIPSTICK Negative (NEGATIVE); URINE KETONE Negative (NEGATIVE); URINE LEUK ESTERASE Negative (NEGATIVE); URINE NITRITE - DIPSTICK Negative (Negative); URINE PH 5.5 (4.5-8.0); URINE PROTEIN - DIPSTICK Negative (NEG-TRACE); URINE UROBILINOGEN - DIPSTICK 0.2 E.U./dL (0.2)
== END 2023-11-21 17:33 | disposition home or self-care (01) ==
LOC: ED 13:42
PROVIDERS: Clinical Nurse Specialist Emergency
DX: M25.551 Pain in right hip (principal); R51.9 Headache, unspecified; E11.40 Type 2 diabetes mellitus with diabetic neuropathy, unspecified; W01.0XXA Fall on same level from slipping, tripping and stumbling without subsequent striking against object, initial encounter; Y92.512 Supermarket, store or market as the place of occurrence of the external cause; Z79.84 Long term (current) use of oral hypoglycemic drugs